=== PATIENT | male | born 2000 | race Caucasian/White ===

== ENCOUNTER 2024-09-27 14:42 | Emergency (ER) | payer BC, OTHER ==
[2024-09-27 15:02] VITALS: PULSE 102; RESP 16; TEMP 98; O2SAT 98
--- NOTE | 2024-09-27 15:39 | ERPHSYRPT ---
- History of Present Illness Time Seen by Provider: 09/27/24 15:30 Source: patient Exam Limitations: no limitations Patient Subjective Stated Complaint: pt reports right foot pain, denies injury or accident, states he is on his feet a lot for work. pt states he saw his chi ropractor prior to coming and they were concerned for a stress fracture. Triage Nursing Assessment: pt is aox3, pupils perrl, afebrile, resps easy and non labored, radial pulses strong and equal, cap refill < 3 seconds, pt skin pink warm dry. pt ambulatory with slow and steady gait to cot, ROM, sensation intact. Physician History: Pt states he started having lateral right foot/ankle pain 2 days ago; denies recent injury. Allergies/Adverse Reactions: amoxicillin Allergy (Verified 09/27/24 15:02) ceftriaxone [From Rocephin] Allergy (Verified 09/27/24 15:02) Penicillins Allergy (Verified 09/27/24 15:02) Sulfa (Sulfonamide Antibiotics) Allergy (Verified 09/27/24 15:02) Hx Tetanus, Diphtheria Vaccination/Date Given: No Hx Influenza Vaccination/Date Given: No Hx Pneumococcal Vaccination/Date Given: No Immunizations Up to Date: No Travel Risk - International Travel Have you traveled outside of the country in past 3 weeks: No - Emerging Infectious Disease Are you exhibiting symptoms associated with any current EIDs: No - Review of Systems Musculoskeletal: Joint Pain (right ankle/foot pain) - Past Medical History Pertinent Past Medical History: Yes GI Medical History: Irritable Bowel Psycho-Social History: Anxiety, Attention Deficit Disorder, Depression Other Medical History: gout - Past Surgical History Past Surgical History: No Other Surgical History: screening colonscopy - Social History Smoking Status: Former smoker Exposure to second hand smoke: No Drug Use: none - Social Determinants of Health Will the patient participate in the screening: Declined to provide - Nursing Vital Signs Nursing Vital Signs: Initial Vital Signs Temperature 98 F 09/27/24 14:50 Pulse Rate 102 H 09/27/24 14:50 Respiratory Rate 16 09/27/24 14:50 Blood Pressure 142/92 09/27/24 14:50 O2 Sat by Pulse Oximetry 98 09/27/24 14:50 Pain Scale Pain Intensity 7 - Physical Exam General Appearance: alert Hips Exam: right: normal range of motion Legs Exam: right leg: normal range of motion Knees Exam: right knee: normal range of motion Ankle Exam: right ankle: normal range of motion, soft tissue tenderness (mild tenderness over lateral aspect with minimal edema without erythema) Foot Exam: right foot: soft tissue tenderness (mild tenderness over proximal lateral aspect) Neuro/Tendon Exam: normal sensation Mental Status Exam: alert, cooperative Skin Exam: warm, dry SpO2 Interpretation: normal SpO2: 98 O2 Delivery: Room Air - Radiology Exams Right Ankle X-ray Interpretation: Discussed w/ radiologist (see report) Right Foot X-ray Interpretation: Discussed w/ radiologist (see report) Ordered Tests: Active Orders 24 hr Category Date Time Status Crutches STAT Care 09/27/24 15:40 Active ANKLE (3 VIEWS) Stat Exams 09/27/24 15:39 Completed FOOT (MINIMUM 3 VIEWS) Stat Exams 09/27/24 15:39 Completed CBC W DIFF Stat Lab 09/27/24 16:00 Completed Uric Acid Stat Lab 09/27/24 16:00 Completed Medication Summary Discontinued Medications Generic Name Dose Route Start Last Admin Trade Name Krista PRN Reason Stop Dose Admin Hydrocodone Bitart/Acetaminophen 2 tab 09/27/24 15:39 09/27/24 16:09 Hydrocodone/Apap 5/325 1 Tab Tablet PO 09/27/24 15:40 2 tab STAT ONE Administration Hydrocodone Bitart/Acetaminophen Confirm 09/27/24 16:09 Hydrocodone/Apap 5/325 1 Tab Tablet Administered 09/27/24 16:10 Dose 2 tab .ROUTE .STK-MED ONE Lab/Rad Data: Laboratory Result Diagrams 09/27/24 16:00 Laboratory Results 09/27/24 09/27/24 Range/Units 16:00 16:00 WBC 9.8 H (4.23-9.07) x10^3/uL RBC 5.13 (4.63-6.08) x10^6/uL Hgb 14.6 (13.7-17.5) g/dL Hct 43.5 (40.1-51.0) % MCV 84.8 (79.0-92.2) fL MCH 28.5 (25.7-32.2) pg MCHC 33.6 (32.3-36.5) g/dL RDW 13.2 (11.6-14.4) % Plt Count 262 (163-337) x10^3/uL MPV 10.3 (9.4-12.4) fL Gran % 68.6 H (34.0-67.9) % Immature Gran % (Auto) 0.5 H (0.001-0.429) % Nucleat RBC Rel Count 0.0 (0.00-0.2) % Eos # (Auto) 0.31 (0.04-0.54) x10^3/uL Immature Gran # (Auto) 0.05 H (0.001-0.031) x10^3u/L Absolute Lymphs (auto) 1.67 (1.32-3.57) x10^3/uL Absolute Monos (auto) 0.97 H (0.30-0.82) x10^3/uL Absolute Nucleated RBC 0.00 (0.00-0.012) x10^3u/L Lymphocytes % 17.1 L (21.8-53.1) % Monocytes % 9.9 (5.3-12.2) % Eosinophils % 3.2 (0.8-7.0) % Basophils % 0.7 (0.2-1.2) % Absolute Granulocytes 6.68 H (1.78-5.38) x10^3/uL Basophils # 0.07 (0.01-0.08) x10^3/uL Uric Acid 7.7 H (3.5-7.2) mg/dL - Progress Progress: unchanged Counseled pt/family regarding: lab results, diagnosis, need for follow-up, rad results Medical Desision Making - Diagnostic Testing Diagnostic test were ordered, analyzed, and reviewed by me: Yes Radiological Interpretation: Discussed w/ radiologist - Departure Departure Disposition: Home Clinical Impression: Gout Condition: Stable Critical Care Time: No Referrals: DEMETRIUS WALLACE FNP [Primary Care Provider] - Follow up/PCP as directed Instructions: Gout ED Additional Instructions: Follow up with private doctor tomorrow. Use crutches for ambulation. No weight bearing on right foot for 2 days. Forms: Work/School Release Form Prescriptions: Indomethacin 25 mg [Indocin 25 MG] 25 mg PO Q8HPRN PRN #30 cap PRN Reason: Pain Allopurinol 100 mg [Zyloprim 100 mg] 100 mg PO DAILY #30 tablet
--- NOTE | 2024-09-27 16:06 | XRAY ---
Indication: Pain. Comparison: None 3 nonweightbearing views right foot demonstrates 5 mm 1st proximal phalanx sclerotic lesion, probable bone island. No other bony, articular, or soft tissue abnormalities.
--- NOTE | 2024-09-27 16:06 | XRAY ---
Indication: Pain. Comparison: None 3 view right ankle demonstrates mild soft tissue swelling. No other bony, articular, or soft tissue abnormalities.
[2024-09-27] MEDS ORDERED: NORCO 5/325 MG ONE (16:09)
[2024-09-27] MEDS: NORCO 5/325 MG PO ONE (16:09)
[2024-09-27 16:11] LABS: Absolute Neutrophil Ct (ANC) 6.68 x10^3/uL (1.78-5.38); BASOPHIL % 0.7 % (0.2-1.2); Basophil (Absolute #) 0.07 x10^3/uL (0.01-0.08); Eosinophil % 3.2 % (0.8-7.0); Eosinophil (Absolute #) 0.31 x10^3/uL (0.04-0.54); Hematocrit 43.5 % (40.1-51.0); Hemoglobin 14.6 g/dL (13.7-17.5); IMMATURE GRAN # 0.05 x10^3u/L (0.001-0.031); IMMATURE GRAN % 0.5 % (0.001-0.429); Lymphocyte (Absolute #) 1.67 x10^3/uL (1.32-3.57); Lymphocytes % 17.1 % (21.8-53.1); Mean Cell Volume 84.8 fL (79.0-92.2); Mean Corpuscular Hemoglobin 28.5 pg (25.7-32.2); Mean Corpuscular Hgb Concent. 33.6 g/dL (32.3-36.5); Mean Platelet Volume 10.3 fL (9.4-12.4); Monocyte (Absolute #) 0.97 x10^3/uL (0.30-0.82); Monocytes % 9.9 % (5.3-12.2); Neutrophil % 68.6 % (34.0-67.9); Platelet Count 262 x10^3/uL (163-337); Red Blood Count 5.13 x10^6/uL (4.63-6.08); Red Cell Distribution Width 13.2 % (11.6-14.4); White Blood Count 9.8 x10^3/uL (4.23-9.07)
[2024-09-27 17:22] VITALS: BP 139/93
== END 2024-09-27 17:35 | disposition home or self-care (01) ==
LOC: ED 14:42
DX: M10.9 Gout, unspecified (principal); M25.571 Pain in right ankle and joints of right foot; M79.671 Pain in right foot; Z79.899 Other long term (current) drug therapy
CPT/HCPCS: 36415; 73610; 73630; 84550; 85025; 99283; 99284; A9270-GY